=== PATIENT | male | born 1955 | race Caucasian/White ===

== ENCOUNTER 2024-03-31 17:06 | Inpatient (IN) | payer MEDICARE, OTHER ==
[~2024-03-31] VITALS: Ht 185.4 cm; Wt 75.8 kg
[2024-03-31] MEDS ORDERED: ACETAMINOPHEN 325 MG TABLET PO PRN (17:45)
[2024-03-31] MEDS ORDERED: MAG HYDROX/AL HYDROX/SIMETH 30 ML LIQUID UDC PO PRN (17:45)
[2024-03-31] MEDS ORDERED: HYDROCODONE/APAP 5-325MG TABLET PO PRN (17:45)
[2024-03-31] MEDS ORDERED: MAGNESIUM HYDROXIDE 30 ML LIQUID UDC PO PRN ×2 (17:45→19:30)
[2024-03-31] MEDS ORDERED: BISACODYL 5 MG TABLET.DR PO ONE (18:00)
[2024-03-31] MEDS ORDERED: MIRALAX 17 GM POWD.PACK PO PRN (18:15)
[2024-03-31] MEDS ORDERED: SENNOSIDES 1 TABLET PO PRN ×2 (18:15→19:30)
[2024-03-31] MEDS ORDERED: METOCLOPRAMIDE HCL 10 MG TABLET PO PRN ×2 (18:15→19:30)
[2024-03-31] MEDS ORDERED: ONDANSETRON HCL 4 MG TABLET PO PRN ×2 (18:15→19:30)
[2024-03-31] MEDS ORDERED: REMEDY ESSENTIAL ZINC PASTE 113 GM TOP PRN (18:15)
[2024-03-31] MEDS ORDERED: AMOX-430 PO (18:20)
[2024-03-31] MEDS ORDERED: ACET325T53 PO (18:21)
[2024-03-31] MEDS ORDERED: BISA-79 PO (18:21)
[2024-03-31] MEDS ORDERED: FAMO20TA8 PO (18:22)
[2024-03-31] MEDS ORDERED: DULO20CA19 PO (18:22)
[2024-03-31] MEDS ORDERED: FINA5TAB11 PO (18:22)
[2024-03-31] MEDS ORDERED: GABA300C PO ×2 (18:23)
[2024-03-31] MEDS ORDERED: HYDR-3974 PO (18:24)
[2024-03-31] MEDS ORDERED: MAG-55 PO (18:25)
[2024-03-31] MEDS ORDERED: MAGN400O6 PO (18:28)
[2024-03-31] MEDS ORDERED: METO-295 PO (18:31)
[2024-03-31] MEDS ORDERED: ONDA4TAB5 PO (18:32)
[2024-03-31] MEDS ORDERED: POLY250017 PO (18:33)
[2024-03-31] MEDS ORDERED: SENN-261 PO (18:34)
[2024-03-31] MEDS ORDERED: TAMS-3 PO (18:35)
[2024-03-31] MEDS ORDERED: ZINC113P3 TP (18:36)
[2024-03-31 18:44] VITALS: BP 98/57; TEMP 97.7; O2SAT 96
[2024-03-31] MEDS ORDERED: BISACODYL 5 MG TABLET.DR PO PRN (19:30)
[2024-03-31] MEDS ORDERED: ACETAMINOPHEN 325 MG TABLET-SA PATIENTS-PAIN ONLY PO PRN (19:30)
[2024-03-31] MEDS ORDERED: Medication Not On Formulary EA (Polyethylene Glycol 3350 17 GM) PO PRN (19:30)
[2024-03-31 20:00] VITALS: BP 99/62; TEMP 97.8; O2SAT 96
[2024-03-31] MEDS ORDERED: GABAPENTIN 300 MG CAPSULE PO SCH (21:00)
[2024-03-31] MEDS ORDERED: AMOXICILLIN-CLAVUL 875-125MG TABLET PO SCH (21:00)
[2024-03-31] MEDS ORDERED: AMOXICILLIN-CLAVUL 875-125MG TABLET ONE (21:27)
[2024-03-31] MEDS: GABAPENTIN 300 MG CAPSULE PO SCH (21:31)
[2024-03-31] MEDS: AMOXICILLIN-CLAVUL 875-125MG TABLET PO SCH (21:31)
[2024-03-31] MEDS: HYDROCODONE/APAP 5-325MG TABLET PO PRN (21:32)
[2024-04-01] MEDS ORDERED: REMEDY ESSENTIAL ZINC PASTE 113 GM TOP PRN
[2024-04-01 06:00] VITALS: BP 89/52; TEMP 97.7; O2SAT 99
[2024-04-01] MEDS ORDERED: ACETAMINOPHEN 325 MG TABLET PO PRN (08:00)
[2024-04-01] MEDS ORDERED: FINASTERIDE 5 MG TABLET PO SCH (09:00)
[2024-04-01] MEDS ORDERED: GABAPENTIN 300 MG CAPSULE PO SCH (09:00)
[2024-04-01] MEDS ORDERED: TAMSULOSIN HCL 0.4 MG CAP.SR.24H PO SCH (09:00)
[2024-04-01] MEDS ORDERED: FAMOTIDINE 20 MG TABLET PO SCH (09:00)
[2024-04-01] MEDS ORDERED: DULOXETINE 20 MG CAPSULE.DR PO SCH (09:00)
[2024-04-01] MEDS: TAMSULOSIN HCL 0.4 MG CAP.SR.24H PO SCH (09:22)
[2024-04-01] MEDS: DULOXETINE 20 MG CAPSULE.DR PO SCH (09:22)
[2024-04-01] MEDS: FINASTERIDE 5 MG TABLET PO SCH (09:23)
[2024-04-01] MEDS: GABAPENTIN 300 MG CAPSULE PO SCH (09:24)
[2024-04-01] MEDS: FAMOTIDINE 20 MG TABLET PO SCH (09:24)
[2024-04-01] MEDS ORDERED: MIRALAX 17 GM POWD.PACK PO PRN (09:30)
[2024-04-01 16:00] VITALS: BP 97/58; TEMP 97.9; O2SAT 97
[2024-04-01] MEDS: ENOXAPARIN SODIUM 40 MG/0.4 ML DISP.SYRIN SQ SCH (16:16)
[2024-04-01 17:46] LABS: BASOPHILS # (AUTO) 0.1 K/UL (0.0-0.2); BASOPHILS % (AUTO) 0.8 % (0.0-2.0); EOSINOPHILS # (AUTO) 0.4 K/uL (0.0-0.7); EOSINOPHILS % (AUTO) 4.9 % (0.0-7.0); HEMATOCRIT 35.1 % (36.7-47.1); HEMOGLOBIN 11.8 g/dL (12.5-16.3); LYMPHOCYTES # (AUTO) 1.9 K/uL (0.8-4.8); LYMPHOCYTES % (AUTO) 24.9 % (20.5-51.5); MEAN CORPUSCULAR HGB CONC 34 g/dL (32.5-36.3); MEAN CORPUSCULAR VOLUME 86.3 fL (73.0-96.2); MONOCYTES # (AUTO) 0.6 K/uL (0.1-1.30); MONOCYTES % (AUTO) 8.4 % (0.0-11.0); NEUTROPHILS # (AUTO) 4.6 K/uL (1.8-8.9); PLATELET COUNT (AUTO) 236 K/uL (152-348); RED BLOOD CELL COUNT(AUTO) 4.07 MIL/uL (4.06-5.63); RED CELL DISTRIBUTION WIDTH 13.1 % (12.1-16.2); WHITE BLOOD COUNT (AUTO) 7.5 K/uL (3.6-10.2)
[2024-04-01 17:51] LABS: DIFFERENTIAL COMMENT 1
[2024-04-01 18:01] LABS: CALCIUM 9.5 mg/dL (8.5-10.1); CREATININE 1.5 mg/dL (0.6-1.3); POTASSIUM 3.7 mmol/L (3.5-5.1)
[2024-04-01 18:09] LABS: IRON, SERUM 35 ug/dL (50-175)
[2024-04-01 18:23] LABS: FERRITIN 282 ng/mL (26-388)
[2024-04-01 20:17] VITALS: BP 94/60; TEMP 97.9; O2SAT 96
[2024-04-02 06:30] VITALS: BP 98/58; TEMP 97.9; O2SAT 97
[2024-04-02 14:59] LABS: THYROID STIMULATING HORMONE 1.017 mIU/mL (0.358-3.740)
[2024-04-02 16:16] VITALS: BP 102/62; TEMP 98.1; O2SAT 98
[2024-04-02 20:09] VITALS: BP 91/56; TEMP 98; O2SAT 97
[2024-04-03 05:40] VITALS: BP 95/58; TEMP 98.1; O2SAT 97
[2024-04-03] MEDS: CYANOCOBALAMIN 1,000 MCG TABLET PO SCH (09:20)
[2024-04-03] MEDS: CHOLECALCIFEROL 1,000 UNIT TABLET PO SCH (09:56)
[2024-04-03] MEDS: ASPIRIN 325 MG TABLET PO ONE (15:04)
[2024-04-03 16:22] VITALS: BP 108/63; TEMP 99.7; O2SAT 98
[2024-04-03 20:00] VITALS: BP 89/51; TEMP 100.7; O2SAT 98
[2024-04-04 05:20] VITALS: BP 101/54; TEMP 100.1; O2SAT 93
[2024-04-04 08:22] LABS: *BILIRUBIN,URIN NEGATIVE (NEGATIVE); *BLOOD, URINE 2+ (NEGATIVE); *CLARITY,URINE CLEAR (CLEAR); *COLOR,URINE YELLOW (YELLOW); *KETONES,URINE NEGATIVE (NEGATIVE); *PROTEIN,URINE 1+ (NEGATIVE); *UROBILINOGEN,URINE 0.2 E.U./dl (NORMAL); LEUKOCYTE ESTERASE ,URINE 2+ (NEGATIVE); NITRITE, URINE NEGATIVE (NEGATIVE); PH,URINE 5.5 (5.0-8.0); UGLUCOSE NEGATIVE (NEGATIVE)
[2024-04-04 08:47] LABS: BACTERIA,URINE MODERATE /HPF (NONE SEEN); RBC,URINE 50-80 /HPF (0-3); WBC,URINE 80-100 /HPF (0-3)
[2024-04-04] MEDS ORDERED: ASPIRIN 81 MG TAB.CHEW PO SCH (09:15)
[2024-04-04] MEDS: ASPIRIN 81 MG TAB.CHEW PO PRN (10:42)
[2024-04-04] MEDS: CIPROFLOXACIN HCL 250 MG TABLET PO SCH (11:18)
[2024-04-04 16:00] VITALS: BP 98/55; TEMP 99.3; O2SAT 96
[2024-04-04] MEDS: METFORMIN XR 500 MG TAB.SR.24H PO SCH (17:52)
[2024-04-04 20:00] VITALS: BP 92/56; TEMP 98.8; O2SAT 94
[2024-04-05 06:07] VITALS: BP 101/63; TEMP 98.1; O2SAT 95
[2024-04-05 15:25] VITALS: BP 103/61; TEMP 97.6; O2SAT 99
[2024-04-05] MEDS: METFORMIN XR 500 MG TAB.SR.24H PO SCH (17:25)
[2024-04-05 20:00] VITALS: BP 97/56; TEMP 98.7; O2SAT 95
[2024-04-06 06:00] VITALS: BP 98/57; TEMP 98.4; O2SAT 98
[2024-04-06 15:18] VITALS: BP 97/60; TEMP 98.4; O2SAT 93
[2024-04-06 22:00] VITALS: BP 97/64; TEMP 98.5; O2SAT 96
[2024-04-07 06:00] VITALS: BP 91/60; TEMP 98.6; O2SAT 95
[2024-04-07 07:32] VITALS: BP 95/61
[2024-04-07 16:02] VITALS: BP 101/56; TEMP 98; O2SAT 94
[2024-04-07 20:22] VITALS: BP 92/58; TEMP 97.9; O2SAT 94
[2024-04-08 06:10] VITALS: BP 97/56; TEMP 98; O2SAT 94
[2024-04-08 16:00] VITALS: BP 96/62; TEMP 97.4; O2SAT 98
[2024-04-08 19:27] VITALS: BP 94/64; TEMP 97.9; O2SAT 98
[2024-04-09 06:50] VITALS: BP 93/52; TEMP 97.8; O2SAT 96
[2024-04-09 16:00] VITALS: BP 95/59; TEMP 97.6; O2SAT 97
[2024-04-09 20:00] VITALS: BP 117/58; TEMP 98; O2SAT 94
[2024-04-10 06:00] VITALS: BP 95/57; TEMP 98; O2SAT 99
[2024-04-10 08:12] LABS: CALCIUM 9.6 mg/dL (8.5-10.1); CREATININE 1.3 mg/dL (0.6-1.3); POTASSIUM 4.2 mmol/L (3.5-5.1)
[2024-04-10 15:30] VITALS: BP 96/55; TEMP 98.4; O2SAT 94
[2024-04-10 21:04] VITALS: BP 93/60; TEMP 98.3
[2024-04-11 04:58] VITALS: BP 97/61; TEMP 98.1
== END 2024-04-11 14:40 | disposition home health service (06) | DRG 690 ==
PROVIDERS: ADMIT Physical Medicine & Rehabilitation Pain Medicine; ATTEND Physical Medicine & Rehabilitation Pain Medicine
DX: N13.6 Pyonephrosis (principal); D68.69 Other thrombophilia; N17.0 Acute kidney failure with tubular necrosis; G35 Multiple sclerosis; R53.1 Weakness; E78.5 Hyperlipidemia, unspecified; N40.1 Benign prostatic hyperplasia with lower urinary tract symptoms; N39.498 Other specified urinary incontinence; G89.29 Other chronic pain; D50.9 Iron deficiency anemia, unspecified; F32.A Depression, unspecified; Z53.20 Procedure and treatment not carried out because of patient's decision for unspecified reasons; Z87.891 Personal history of nicotine dependence; K21.9 Gastro-esophageal reflux disease without esophagitis
CPT/HCPCS: 36415; 71045; 83550; 83921; 84443; 85025; 93005; C1758; J1650